=== PATIENT | female | born 1995 | race African-American/Black ===

== ENCOUNTER 2017-05-19 04:21 | Emergency (ER) | payer MEDICAID ==
[~2017-05-19] VITALS: Ht 167.6 cm; Wt 58.0 kg
[2017-05-19] MEDS ORDERED: METHYLPREDNISOLONE SOD SUCC 125 MG/2 ML VIAL IM ONE (08:00)
[2017-05-19 08:45] VITALS: BP 95/62
== END 2017-05-19 08:45 | disposition home or self-care (01) ==
LOC: ER 05:29
DX: L50.0 Allergic urticaria (principal); F12.10 Cannabis abuse, uncomplicated; Z91.040 Latex allergy status
CPT/HCPCS: 96372; 99283; J2930